=== PATIENT | female | born 1960 | race Caucasian/White ===

== ENCOUNTER 2016-07-11 05:15 | Inpatient (IN) | payer OTHER ==
[~2016-07-11] VITALS: Ht 175.3 cm; Wt 65.8 kg
[~2016-07-11 05:15] MED LIST: JUNEL 1 MG-201 EACH PO; LORAZEPAM0.5 M1 PO; SEROQUEL200 M1 PO; VIIBRYD40 M1 PO; WELLBUTRIN XL300 M2 PO
--- NOTE | 2016-07-11 09:47 | Admission Core Measures ---
Admission Lab Results I reviewed the following labs: Laboratory Tests 07/11 616 Urines Urine Test NEGATIVE Admission Meds I reviewed the following Meds: Current Medications Sig/Vijay Start time Last Medication Dose Stop Time Status Admin Acetaminophen 975 MG ONCE 07/11 0000 NR (Tylenol) 07/11 2358 Bupropion HCl 300 MG QAM 07/11 1000 AC (Wellbutrin XL) Cefazolin Sodium 2,000 MG ONCE 07/11 0000 NR (Kefzol-Ancef Inj) 07/11 2358 Lorazepam 0.5 MG DAILY NEEDED 07/11 0900 AC (Ativan) 07/18 0859 Oxycodone HCl 10 MG ONCE 07/11 0000 NR (Roxicodone) 07/11 2358 Quetiapine Fumarate 200 MG QPM 07/11 2200 AC (Seroquel) Vilazodone HCl 40 MG DAILY 07/12 1000 AC (Viibryd) Acute Coronary Syndrome Inclusion Criteria ACS Diagnosis No Inpatient Core Measures LDL Reminder: If No, please order W/I first 24hr of stay Congestive Heart Failure Inclusion Criteria CHF Diagnosis No Cerebrovascular accident Inclusion Criteria CVA/TIA Diagnosis No Inpatient Core Measures Bedside Swallow Eval Reminder: If BSE failed, place ST order Antithrombotic Reminder: Order Antithrombotic Medication by end of day 2 Antithrombotic Reminder: Document Reason Antithrombotic Not ordered by end of day 2 AFIB/Flutter Reminder: If Present, add to problem list AFIB/Flutter Reminder: Order Anticoag Medication for pts with AFIB/Flutter Atherosclerosis Reminder: If Present, add to problem list LDL Reminder: If No, please order W/I first 24hr of stay PT Order Reminder: If No, please order Venous thromboembolism Inpatient Core Measures VTE Risk Factors: Age > 40, Surgery No [facility] VTE prophylaxis d/t No contraindications No VTE Pharm Prophylaxis d/t No contraindications Inclusion Criteria - Per Current guidelines, there needs to be overlap - treatment for the first 5 days of Warfarin therapy. - Parenteral Anticoagulation (IV or SC) needs to be - given along with Warfarin therapy. VTE Diagnosis No VTE Type NONE VTE Confirmed by (Test) NONE Problem List As ranked by this Provider includes Assessment & Plan 1. Unilateral primary osteoarthritis, left hip HOME MEDS Home Med List Bupropion HCl (Wellbutrin XL) 300 MG TAB.ER.24H 1 TAB PO QAM DEPRESSION ( Reported) Lorazepam 0.5 MG TABLET 1 TAB PO DAILY NEEDED ANXIETY (Reported) Norethindrone AC-Eth Estradiol (Junel 1 MG-20 Mcg Tablet) 1 MG-20 MCG TABLET 1 TAB PO DAILY CONTROL (Reported) Quetiapine Fumarate (Seroquel) 200 MG TABLET 1 TAB PO QPM ANXIETY (Reported) Vilazodone (Viibryd) 40 MG TABLET 1 TAB PO DAILY DEPRESSION (Reported)
[2016-07-11] MEDS ORDERED: COLACE100 M1 PO (09:54)
[2016-07-11] MEDS ORDERED: ASPIRIN EC325 M2 PO (09:54)
[2016-07-11] MEDS ORDERED: MIRALAX17 G1 PO (09:54)
[2016-07-11] MEDS ORDERED: DILAUDID2 M1 PO (09:54)
[2016-07-11] MEDS ORDERED: MS CONTIN15 M2 PO (09:54)
[2016-07-11] MEDS ORDERED: PRILOSEC OTC20 M1 PO (09:54)
--- NOTE | 2016-07-11 10:09 | RADIOLOGY REPORT ---
EXAMINATION: XR HIP, LEFT CLINICAL INFORMATION: Left hip replacement. COMPARISON: None TECHNIQUE: Two views of the left hip. FINDINGS: Patient reportedly in PACU. Left total hip arthroplasty is noted with the components in usual position. There is air in the soft tissues compatible with the recent surgery. The surrounding bone and soft tissues are normal. IMPRESSION: Left total hip arthroplasty without complication by x-ray
--- NOTE | 2016-07-11 10:19 | Patient Discharge Instructions ---
Discharge Instructions General Discharge Information You were seen/treated for: LEFT HIP PAIN SECONDARY TO OSTEOARTHRITIS You had these procedures: LEFT TOTAL HIP REPLACEMENT Watch for these problems: INCREASING PAIN DESPITE THE USE OF PAIN MEDICATION, REDNESS, SWELLING. DRAINAGE OF ANY TYPE FROM INCISION. INABILITY TO BEAR WEIGHT ON LEFT LEG. FEVER GREATER THAN 101.5 DEGREES. Do not soak the wound: Yes No bath, but you may shower: Yes Special Instructions: WOUND CARE: KEEP WOUND CLEAN AND DRY. YOUR HOME CARE NURSE WILL CHANGE YOUR DRESSING ON THE SECOND DAY AFTER YOUR SURGERY. DAILY DRY DRESSING CHANGES RECOMMENDED AFTER THAT. NO OINTMENTS OF ANY TYPE ON INCISION. BLOOD THINNER: YOU WILL BE TAKING 325 MG OF ASPIRIN TWICE DAILY. THIS IS IMPORTANT IT HELPS PROTECT YOU FROM DEVELOPING A BLOOD CLOT. YOU WILL BE TAKING THIS FOR 4 WEEKS. PLEASE TAKE WITH FOOD. YOU HAVE ALSO BEEN GIVEN PRILOSEC TO HELP PROTECT YOUR STOMACH LINING WELL. BOWEL REGIMEN: PAIN MEDICATION CAN OFTEN CAUSE CONSTIPATION. IT IS VERY IMPORTANT THAT YOU TAKE A STOOL SOFTENER AND A LAXATIVE TO ENSURE REGULAR BOWEL MOVEMENTS WHILE ON PAIN MEDICATION. Diet Continue normal diet: Yes Recommended Diet: Regular Additional DIET Information: ADVANCE DIET TOLERATED Activity Full Activity/No Limits: No Activity Self Limited: Yes Pounds, do NOT lift more than: 10 Additional ACTIVITY Info: WEIGHT BEAR TOLERATED Acute Coronary Syndrome Inclusion Criteria At DC or during hospital stay patient has or had the following: ACS DIAGNOSIS No Discharge Core Measures Meds if any: Prescribed or Continued at Discharge Meds if any: NOT Prescribed or Continued at Discharge Congestive Heart Failure Inclusion Criteria At DC or during hospital stay patient has or had the following: CHF DIAGNOSIS No Discharge Core Measures Meds if any: Prescribed or Continued at Discharge Meds if any: NOT Prescribed or Continued at Discharge Cerebrovascular accident Inclusion Criteria At DC or during hospital stay patient has or had the following: CVA/TIA Diagnosis No Discharge Core Measures Meds if any: Prescribed or Continued at Discharge Meds if any: NOT Prescribed or Continued at Discharge Venous thromboembolism Inclusion Criteria VTE Diagnosis No VTE Type NONE VTE Confirmed by (Test) NONE Discharge Core Measures - Per Current guidelines, there needs to be overlap - treatment for the first 5 days of Warfarin therapy. - If discharged on Warfarin prior to 5 days of - overlap therapy, the patient will need to be - assessed for post discharge needs including - *Post discharge parental anticoagulation - *Warfarin and/or parental anticoagulation education - *Follow up date to check INR post discharge At least 5 days overlap therapy as Inpatient No Meds if any: Prescribed or Continued at Discharge Note: Overlap Therapy is Warfarin and Anticoagulant Meds if any: NOT Prescribed or Continued at Discharge
--- NOTE | 2016-07-11 10:23 | Surgical Discharge Summary ---
Visit Information Visit Dates Admission Date: 07/11/16 Discharge Date: 07/11/16 History of Present Illness Chief Complaint: LEFT HIP PAIN Medical History Isolation History: Standard Surgical History Pertinent Surgical History: non-contributory Review of Systems: SEE H&P Hospital Course Course Attending Physician: ISAURO LARSON MD Primary Care Physician: LEIDA ESPINOZA,[place] Hospital Course: MITZY WAS ADMITTED TO THE HOSPITAL ON 07/11/2016 FOR AN ELECTIVE LEFT TOTAL HIP REPLACEMENT. SHE TOLERATED THE PROCEDURE WELL. SHE WAS TRANSFERRED TO A GENERAL SURGICAL FLOOR. HER DIET WAS ADVANCED AND TOLERATED. HER VITAL SIGNS WERE STABLE AND WITHIN NORMAL LIMITS. HER PAIN WAS WELL CONTROLLED WITH PO PAIN MEDICATIONS. SHE VOIDED SPONTANEOUSLY. SHE WAS EVALUATED AND TREATED BY PHYSICAL THERAPY. SHE WAS DEEMED APPROPRIATE FOR DISCHARGE. Complications: None Allergies: Coded Allergies: No Known Allergies (07/10/16) Disposition Summary Disposition Principal Diagnosis: LEFT HIP UNILATERAL PRIMARY OSTEOARTHRITIS Additional Diagnosis: NONE Discharge Disposition: home health services Discharge Instructions General Discharge Information Code Status: Full Code Patient's Diet: REGULAR, ADVANCE TOLERATED Patient's Activity: WBAT Follow-Up Instructions/Appts: SEE DR. LARSON IN 6 WEEKS FROM DATE OF SURGERY. Medications at Discharge Discharge Medications: Continue taking these medications: Vilazodone (Viibryd) 40 MG TABLET 1 Tablet ORAL DAILY Instructions: TAKES AT NIGHT Lorazepam (Lorazepam) 0.5 MG TABLET 1 Tablet ORAL DAILY NEEDED Bupropion HCl (Wellbutrin XL) 300 MG TAB.ER.24H 1 Tablet ORAL Every Morning Quetiapine Fumarate (Seroquel) 200 MG TABLET 1 Tablet ORAL Every night Norethindrone AC-Eth Estradiol (Junel 1 MG-20 Mcg Tablet) 1 MG-20 MCG TABLET 1 Tablet ORAL DAILY Start taking the following new medications: Aspirin (Ecotrin*) 325 MG TABLET.DR 1 Tablet ORAL TWICE DAILY Qty = 60 No Refills Hydromorphone HCl (Dilaudid) 2 MG TABLET 1-2 Tablet ORAL EVERY 4-6 HOURS as needed for PAIN Qty = 36 No Refills Morphine Sulfate (Ms Contin) 15 MG TABLET.ER 1 Tablet ORAL TWICE DAILY Qty = 6 No Refills Docusate Sodium (Colace) 100 MG CAPSULE 1 Capsule ORAL TWICE DAILY Qty = 14 No Refills Instructions: DISCONTINUE USE IF YOU DEVELOP LOOSE STOOL OR DIARRHEA Polyethylene Glycol 3350 (Miralax) 17 GRAM POWD.PACK 1 Packet ORAL DAILY Qty = 7 No Refills Instructions: dissolve in water, DISCONTINUE USE IF YOU DEVELOP LOOSE STOOL OR DIARRHEA Omeprazole Magnesium (Prilosec Otc) 20 MG TABLET. 1 Tablet ORAL DAILY Qty = 30 No Refills Copies To: LEIDA ESPINOZA,JESSICA
[2016-07-11 11:00] VITALS: BP 110/68
--- NOTE | 2016-07-11 14:05 | PN- Orthopedic ---
Subjective Subjective: POST-OP NOTE: Reports some soreness, which is what she expected. Cleared stairs by PT. No dizziness. No shortness of breath. No chest pains. Voiding well. Tolerating diet. Anticipates discharge to home today. Objective Vital Signs and I&Os Vital Signs Date Time Temp Pulse Resp B/P Pulse O2 O2 Flow FiO2 Ox Delivery Rate 07/11 1100 97.4 88 18 110/68 95 Room Air Intake & Output 07/11 1600 07/11 0800 07/11 0000 07/10 1600 07/10 0800 07/10 0000 Intake Total Output Total 400 Balance -400 Output, Urine 400 Patient 145 lb 145 lb Weight Physical Exam: General - alert & oriented x 3. comfortable. no acute distress. Lungs - clear bilaterally. no w/r/r. Cardiac - s1s2. reg. Abdomen - soft. nontender. Extremities - warm bilaterally. left hip dressing c/d/i. no hematoma. nvi. calves soft and nontender b/l. Assessment/Plan Assessment/Plan This 56 year old white female is POD#0 s/p left total hip replacement, anterior approach tolerating diet pain controlled neetu-operative ancef asa bid cleared by PT for home d/c to home today will d/w Core Measures/Miscellaneous Venous Thromboembolism VTE Risk Factors: Age > 40, Surgery VTE Contraindications: No Contraindications VTE Diagnosis: No VTE Type: NONE VTE Confirmed by (Test): NONE Beta Columba Is Beta Columba a Home Med? No Antibiotics Is Patient on Antibiotics? Yes If Yes: prophylaxis
--- NOTE | 2016-07-11 16:09 | Operative Report ---
Operative/Inv Procedure Report Surgery Date: 07/11/16 Name of Procedure: Left total hip replacement Pre-Operative Diagnosis: Primary left hip DJD Post-Operative Diagnosis: Primary left hip DJD Estimated Blood Loss: 250 Surgeon/Director Of Publications: MARSHA ESPINOZA,ISAURO Barton Anesthesia: block Operative/Procedure Note Note: Description of Procedure: The patient was taken to the operating room and positively identified. After induction of spinal anesthesia and administration of appropriate pre-operative antibiotics, the patient was positioned supine on the operating room table and all bony prominences were well padded. After performing a surgical timeout, the left lower extremity was prepped and draped in the usual sterile fashion. A direct anterior approach was made to the left hip. The incision was carried sharply through superficial soft tissues to the level of the fascia. Meticulous hemostasis was maintained with Bovie electocautery. The fascia over the tensor fascia niranjan muscle was opened sharply and the interval between the TFL and the sartorius was entered bluntly taking care to stay lateral to the lateral femoral cutaneous nerve. Retractors were placed around the femoral neck and the pericapsular fat was identified. The ascending branches of the lateral femoral circumflex vessels were identified and carefully coagulated. The pericapsular fat and anterior capsule were then resected. A napkin ring osteotomy was performed and the femoral head was removed without difficulty. Attention was then turned to the acetabulum. After appropriate placement of retractors, the acetabulum was exposed. Soft tissue was cleaned from the acetabular margin and notch. Overhanging osteophytes were removed and the teardrop was exposed. The acetabulum was then sequentially reamed to accept a 52 mm Diego Tritanium hemispherical solid back shell. This was impacted into place in the appropriate position and fitted with a 32 mm Trident X3 zero degree polyethylene insert. Attention was then turned to the femur. After performing the appropriate ligament releases, the proximal femur was exposed. It was then sequentially broached to accept a size 3 [place] accolade 2 stem. This was trialed for leg length and stability. The trial component was removed and the final component was impacted into place. The trunnion was carefully cleaned and fit with a 32 mm, +0 Biolox delta ceramic femoral head. The hip was reduced and put through a full range of motion and found to be stable. The articular space was then irrigated with sterile saline. The periarticular soft tissues were infilitrated with Marcaine. The fascial layer was closed with interrupted #1 vicryl suture and the skin was re-approximated with interrupted 2 -0 vicryl. The skin was closed with a running 3-0 V-Lock suture. Steri-strips and a sterile dressing were applied. The patient was awakened and taken to the recovery room in satisfactory condition.
== END 2016-07-11 16:17 | disposition home health service (06) | DRG 470 ==
LOC: ENRESERVTM → ENRESERVDT → SDA 05:15 → 2NA 11:00
PROVIDERS: ADMIT Orthopaedic Surgery
PROC: 0SRB04A Replacement of Left Hip Joint with Ceramic on Polyethylene Synthetic Substitute, Uncemented, Open Approach (ICD-10-PCS; principal; 2016-07-11)
DX: M16.12 Unilateral primary osteoarthritis, left hip (principal); F41.8 Other specified anxiety disorders; Z87.891 Personal history of nicotine dependence
CPT/HCPCS: 2NASP; 73502-LT; 81025; 88304; 97110-GO; 97116-GO; 97161-GP; 97530-GO; J0690; J0735; J2405; J2550; J7042